=== PATIENT | female | born 1975 | race Caucasian/White ===

== ENCOUNTER 2019-09-14 09:19 | Emergency (ER) | payer MEDICAID, SELFPAY ==
--- NOTE | ~2019-09-14 | XR_ITS ---
EXAMINATION: XR chest 1V portable DATE: 09/14/2019 09:46 INDICATION: Chest pain. TECHNIQUE: A single frontal view of the chest was obtained. COMPARISON: None. FINDINGS: The chest demonstrates clear lungs without pneumonia, pleural effusion, or pneumothorax. Th e heart size is normal. IMPRESSION: 1. No acute cardiopulmonary disease. Reviewed, dictated and finalized at location A.
[2019-09-14 09:23] VITALS: BP 118/85; PULSE 96; RESP 32; TEMP 36.5; O2SAT 99
[2019-09-14 09:26] VITALS: PULSE 96
--- NOTE | 2019-09-14 09:26 | ECG_ITS ---
Measurements Intervals [place] Rate: 86 P: 76 RI: 120 QRS: 46 QRSD: 88 T: 53 QT: 379 QTc: 456 Interpretive Statements SINUS RHYTHM INCOMPLETE RIGHT BUNDLE BRANCH BLOCK BASELINE ARTIFACT- I, II, III, AVR, AVL, AVF, V1 BORDERLINE ECG Electronically Signed On 09-14-2019 9:34:26 CDT by Maverick Feliciano D.O.
--- NOTE | 2019-09-14 09:28 | ED.CHESTPAIN ---
HPI - Chest Pain General Chief Complaint: Chest Pain Stated Complaint: Chest pain Time Seen by Provider: 09/14/19 09:21 History of Present Illness HPI narrative: Severe chest pain since this morning. Started while driving. Pressure like in quality. Associated with SOB. She reports that she has had this before. She was told that she had blockages , but she was not treated because she is . I contacted her transportation project manager who told me that her stress test was normal aside from reported chest pain during the procedure. He said that he would not worry about it. Related Data Home Medications Medication Instructions Recorded Confirmed lamotrigine 75 mg PO DAILY 09/14/19 nitroglycerin 0.4 mg SUBLINGUAL Q5M PRN 09/14/19 promethazine 25 mg PO Q6H PRN 09/14/19 Allergies Allergy/AdvReac Type Severity Reaction Status Date / Time No Known Allergies Allergy Verified 09/14/19 10:16 Review of Systems Review of Systems: All systems reviewed & are unremarkable except as noted in HPI and below PMFSH Past Medical History Medical History (Updated 09/14/19 @ 18:09 by Hira Mcelroy MD) CAD (coronary artery disease) Social History Social History Gender identity (if verbalized by the patient): Female Exam Const: General: healthy appearing, no acute distress and alert Orientation/consciousness: patient oriented x3 HENMT: Head: normal to inspection Neck: Neck: normal visual inspection and no lymphadenopathy Chest: Chest palpation & inspection: no tenderness Resp: Effort & Inspection: normal respiratory effort Auscultation: clear to auscultation bilaterally, no rales, no rhonchi and no wheezes Cardio: Jugular venous distension: no JVD Rate: regular rate Rhythm: regular rhythm Heart sounds: no murmurs GI: Inspection: non-distended GI Palp: Yes Soft to palpation and No Tenderness to palpation present (GI) Skin: General skin exam: normal color Neuro: General: patient oriented x3 and moves all extremities Speech: normal speech Extrem: General: no edema Psych: Appearance: well kempt Affect: normal affect Course Vital Signs Vital signs: Vital Signs Temperature 36.5 C 09/14/19 09:23 Pulse Rate 96 09/14/19 09:23 Respiratory Rate 32 H 09/14/19 09:23 Blood Pressure 118/85 09/14/19 09:23 Pulse Oximetry 99 09/14/19 09:23 Temperature 36.5 C 09/14/19 09:23 Pulse Rate 100 09/14/19 13:21 Respiratory Rate 16 09/14/19 13:21 Blood Pressure 102/74 09/14/19 13:21 Pulse Oximetry 98 09/14/19 13:21 MDM - Chest Pain MDM Narrative Medical decision making narrative: Her initially story was worrisome, but I spoke to her transportation project manager who seemed unconcerned. Mild ST depressions on EKG no comparison. Negative troponin x2. Medical Records Data Attestation: I reviewed the patient's medical records. Lab Data Attestation: I reviewed the patient's lab results. Result diagrams: 09/14/19 09:32 09/14/19 09:32 Labs: Lab Results 09/14/19 09/14/19 09/14/19 Range/Units 09:32 09:32 09:32 WBC 11.2 H (4.5-10.0) K/mm3 RBC 4.18 L (4.2-5.4) M/mm3 Hgb 13.4 (12.0-15.0) g/dL Hct 38.8 (37.0-47.0) % MCV 92.8 (80-100) fl MCH 32.1 (26-34) pg MCHC 34.5 (32-36) g/dl RDW 13.3 (11.5-14.5) % Plt Count 327 (150-375) k/mm3 MPV 10.0 (7.4-10.4) fl Immature Gran % (Auto) 0.4 (0-0.5) % Neut % (Auto) 66.6 (45.5-73.1) % Lymph % (Auto) 22.7 (18.3-44.2) % Nolan % (Auto) 8.6 H (2.6-8.5) % Eos % (Auto) 1.5 (0-4.4) % Baso % (Auto) 0.2 (0.2-1.2) % Lymph # (Auto) 2.55 (0.9-3.2) K/mm3 Nolan # (Auto) 1.0 H (0.1-0.6) K/mm3 Eos # (Auto) 0.2 (0-0.3) K/mm3 Baso # (Auto) 0.0 (0.0-0.1) K/mm3 Abs Immat Gran (auto) 0.04 H (0.00-0.031) K/mm3 Absolute Neuts (auto) 7.5 H (1.3-6.7) K/mm3 Absolute Nucleated RBC 0.0 (0.0-0.012) K/mm
[2019-09-14 09:31] VITALS: O2SAT 99
[2019-09-14] MEDS: ASPIRIN 81 MG CHEWABLE TABLET 324 MG PO (09:35)
[2019-09-14 09:38] LABS: Basophils Percent Auto 0.2 % (0.2-1.2); Eosinophils Absolute Auto 0.2 K/mm3 (0-0.3); Eosinophils Percent Auto 1.5 % (0-4.4); Hematocrit 38.8 % (37.0-47.0); Hemoglobin 13.4 g/dL (12.0-15.0); Immature Granulocyte Absolute 0.04 K/mm3 (0.00-0.031); Immature Granulocyte Percent A 0.4 % (0-0.5); Lymphocytes Absolute Auto 2.55 K/mm3 (0.9-3.2); Lymphocytes Percent Auto 22.7 % (18.3-44.2); Mean Corpuscular HGB Conc 34.5 g/dl (32-36); Mean Corpuscular Hemoglobin 32.1 pg (26-34); Mean Corpuscular Volume 92.8 fl (80-100); Monocytes Percent Auto 8.6 % (2.6-8.5); Neutrophils Absolute Auto 7.5 K/mm3 (1.3-6.7); Neutrophils Percent Auto 66.6 % (45.5-73.1); Platelet Count Result 327 k/mm3 (150-375); Red Blood Count 4.18 M/mm3 (4.2-5.4); Red Cell Distribution Width 13.3 % (11.5-14.5); White Blood Count 11.2 K/mm3 (4.5-10.0)
[2019-09-14 09:48] LABS: Prothrombin Time 12.7 Seconds (11.1-14.7)
[2019-09-14 09:49] LABS: Blood Urea Nitrogen 6 mg/dL (7-17); Calcium 9.4 mg/dL (8.4-10.2); Carbon Dioxide 23 mmol/L (22-30); Chloride 104 mmol/L (98-107); Estimated CRCL calculation 122 ml/min; Estimated Glomerular Filt Rate > 60; Glucose 86 mg/dL (65-105); Potassium 3.4 mmol/L (3.4-5.0); Sodium 134 mmol/L (137-145)
[2019-09-14 09:50] LABS: Partial Thromboplastin Time 27.2 SECONDS (22.3-36.8)
--- NOTE | 2019-09-14 09:52 | PC.NURSE ---
urgent request for cardiac records faxed to Dr. Leonila Bauer's clinic at this time per ed physician request. fax [phone], phone [phone]
[2019-09-14 10:01] LABS: Troponin I < 0.012 ng/mL (0.000-0.034)
[2019-09-14 10:15] VITALS: BP 97/70; PULSE 84; RESP 18; O2SAT 99
[2019-09-14 11:40] VITALS: BP 114/84; PULSE 90; RESP 18; O2SAT 98
[2019-09-14 12:55] LABS: Troponin I < 0.012 ng/mL (0.000-0.034)
[2019-09-14 13:21] VITALS: BP 102/74; PULSE 100; RESP 16; O2SAT 98
== END 2019-09-14 13:35 | disposition home or self-care (01) ==
PROVIDERS: Emergency Provider Emergency Medicine
DX: R07.89 Other chest pain (principal); I25.10 Atherosclerotic heart disease of native coronary artery without angina pectoris; I45.10 Unspecified right bundle-branch block
CPT/HCPCS: 36415; 71045; 80048; 84484; 85025; 85610; 85730; 93005; 99284; A9270